=== PATIENT | male | born 1980 | race Caucasian/White ===

== ENCOUNTER 2024-01-20 13:50 | Emergency (ER) | payer BC ==
[2024-01-20] MEDS: Ibuprofen 800 MG Tab PO ONE (16:09)
== END 2024-01-20 16:27 | disposition home or self-care (01) ==
LOC: MW.ED 13:50
DX: M25.562 Pain in left knee (principal); Z75.8 Other problems related to medical facilities and other health care
CPT/HCPCS: 73552-26-LT; 73552-LT; 73560-26-LT; 73560-LT; 73590-26-LT; 73590-LT; 73630-26-LT; 73630-LT; 99283